=== PATIENT | female | born 1970 | race Caucasian/White ===

== ENCOUNTER 2017-11-24 15:20 | Emergency (ER) | payer OTHER ==
[~2017-11-24] VITALS: Ht 170.2 cm; Wt 81.7 kg
[~2017-11-24 15:20] MED LIST: ASPIRIN325 PO; DIAZEPAM10 M1 PO; DOXYCYCLINE 10100 MG PO; METHADONE HCL 110 M1 PO; PHENERGAN 25 MG25 M1 PO; VICODIN 5-5001 EACH PO
[2017-11-24] MEDS ORDERED: XANAX1 MG PO (15:35)
[2017-11-24] MEDS ORDERED: AMBIEN 5 MG TABL5 M1 PO (15:36)
[2017-11-24] MEDS ORDERED: MORPHINE SULFAT15 M3 PO (16:57)
[2017-11-24 18:14] VITALS: BP 152/71
== END 2017-11-24 18:17 | disposition home or self-care (01) ==
LOC: ER 15:20
DX: S92.124A Nondisplaced fracture of body of right talus, initial encounter for closed fracture (principal); G82.20 Paraplegia, unspecified; Z88.1 Allergy status to other antibiotic agents; Z88.8 Allergy status to other drugs, medicaments and biological substances; W22.8XXA Striking against or struck by other objects, initial encounter; Y93.89 Activity, other specified; Y92.89 Other specified places as the place of occurrence of the external cause; Y99.8 Other external cause status